=== PATIENT | female | born 1990 | race Caucasian/White ===

== ENCOUNTER 2018-08-07 13:15 | Inpatient (IN) | payer OTHER ==
[~2018-08-07] VITALS: Ht 162.6 cm; Wt 72.6 kg
[~2018-08-07 13:15] MED LIST: PEPCID40 MG PO; PHENERGAN25 MG PO
== END 2018-08-24 15:21 | disposition home or self-care (01) | DRG 807 ==
LOC: LDR 08-22 10:27 → OB/GYN 08-22 10:27
PROVIDERS: ADMIT Obstetrics & Gynecology
PROC: 10E0XZZ Delivery of Products of Conception, External Approach (ICD-10-PCS; principal; 2018-08-22)
PROC: 4A1HXCZ Monitoring of Products of Conception, Cardiac Rate, External Approach (ICD-10-PCS; 2018-08-22)
DX: O80 Encounter for full-term uncomplicated delivery (principal); Z37.0 Single live birth; Z3A.39 39 weeks gestation of pregnancy